=== PATIENT | female | born 1990 | race Caucasian/White ===

== ENCOUNTER 2016-08-18 10:30 | Emergency (ER) | payer MEDICAID ==
[2016-08-18 11:27] LABS: BASO % 0.8 % (0.0-2.0); EOS # 0.4 K/uL (0.0-0.7); HEMATOCRIT 38.1 % (34.0-47.0); LYMPH # 2.3 K/uL (1.0-4.3); LYMPH % 40.6 % (20.0-40.0); MEAN CELL VOLUME 80.3 fL (81.0-99.0); MEAN CORPUSCULAR HEMOGLOBIN 26.7 pg (27.0-31.0); MEAN CORPUSCULAR HGB CONC 33.3 g/dL (33.0-37.0); MONO # 0.4 K/uL (0.0-0.8); MONO % 7.6 % (0.0-10.0); RED CELL DISTRIBUTION WIDTH 13.2 % (11.5-14.5); WHITE BLOOD COUNT 5.6 K/uL (4.8-10.8)
[2016-08-18 11:35] LABS: CHLORIDE 105 mmol/L (98-107); POTASSIUM 3.8 mmol/L (3.6-5.2); SODIUM 144 mmol/L (132-148)
[2016-08-18 11:37] LABS: ALB/GLOB RATIO 1.2 (1.0-2.1); ALKALINE PHOSPHATASE 41 U/L (38-126); AMYLASE 104 U/L (30-110); AST/SGOT 34 U/L (14-36); BILIRUBIN,TOTAL 0.3 mg/dL (0.2-1.3); BLOOD UREA NITROGEN 11 mg/dL (7-17); CARBON DIOXIDE 24 mmol/L (22-30); GFR AFRICAN-AMERICAN > 60; TOTAL PROTEIN 7.7 g/dL (6.3-8.3)
[2016-08-18 11:38] LABS: ALT/SGPT 41 U/L (9-52); GLUCOSE,RANDOM 80 mg/dL (65-105)
[2016-08-18 11:39] LABS: URINE BILIRUBIN NEGATIVE (NEGATIVE); URINE BLOOD 3+ (NEGATIVE); URINE COLOR Yellow (YELLOW); URINE GLUCOSE (UA) NORMAL (Normal); URINE KETONE NEGATIVE (NEGATIVE); URINE LEUKOCYTE ESTERASE NEG Leu/uL (Negative); URINE PROTEIN NEGATIVE (NEGATIVE); URINE UROBILINOGEN NORMAL mg/dL (0.2-1.0)
[2016-08-18 11:57] LABS: RBC URINE 3 /hpf (0-3); WBC URINE 2 /hpf (0-5)
--- NOTE | 2016-08-18 12:40 | C.PDOC ---
History Of Present Illness 26 year old female presents to the ED with complaints of nausea, vomiting, and pain after eating for the last week. Currently she has no pain. No fever. No n/ v. Patient notes bright red blood has been present with non-painful bowel movements for a year and has become more persistent. Has not been evalauted for this previously. Time Seen by Provider: 08/18/16 11:20 Chief Complaint (Nursing): GI Problem History Per: Patient History/Exam Limitations: no limitations Onset/Duration Of Symptoms: Persistent (blood in stool has been present for a year, with nausea, vomiting, and pain after eating appearing for the last week ) Current Symptoms Are (Timing): Still Present Quality Of Discomfort: "Pain" Associated Symptoms: Nausea. denies: Fever, Chills, Vomiting, Diarrhea Past Medical History Reviewed: Historical Data, Nursing Documentation, Vital Signs Vital Signs: Last Vital Signs Temp 98.4 F 08/18/16 14:06 Pulse 84 08/18/16 14:06 Resp 20 08/18/16 14:06 BP 98/65 L 08/18/16 14:06 Pulse Ox 100 08/18/16 14:07 - Medical History PMH: Asthma Family History: States: Unknown Family Hx - Social History Hx Alcohol Use: No Hx Substance Use: No - Immunization History Hx Influenza Vaccination: No Review Of Systems Constitutional: Negative for: Fever, Chills Gastrointestinal: Positive for: Nausea, Abdominal Pain. Negative for: Vomiting Genitourinary: Negative for: Incontinence, Hematuria Physical Exam - Physical Exam Appears: Non-toxic, No Acute Distress Skin: Warm, Dry Head: Atraumatic, Normacephalic Eye(s): bilateral: Normal Inspection, EOMI Nose: Normal Oral Mucosa: Moist Neck: Supple Chest: Symmetrical Cardiovascular: Rhythm Regular Respiratory: Normal Breath Sounds, No Rales, No Rhonchi, No Stridor, No Wheezing Gastrointestinal/Abdominal: Soft, No Tenderness, No Distention, No Guarding, No Rebound Rectal: Normal Exam, No Melena, No Hemorrhoids ((-) external hemorrhoids), No Tenderness Extremity: Normal ROM, No Tenderness Neurological/Psych: Oriented x3 ED Course And Treatment - Laboratory Results Result Diagrams: 08/18/16 11:21 08/18/16 11:21 O2 Sat by Pulse Oximetry: 100 Progress Note: Pt is currently asymptomatic. Not anemic. Abdomen is soft, nontender. Therefore will be discharged for outpt follow up with GI. Instructed strict follow up or return to ER if symtpoms persist or worsen. Case discussed with Dr Dc, agreed upon plan an ddischarge. Disposition - Disposition Referrals: Bk Ramirez MD [Staff Provider] - Disposition: HOME/ ROUTINE Disposition Time: 14:02 Condition: STABLE Additional Instructions: Follow up with your primary medical doctor or clinic in 2-5 days for further evaluation. Take medications as prescribed. Return to the emergency department at any time if symptoms persist or worsen. Prescriptions: Magnesium Citrate 150 mg PO BID PRN #15 tablet PRN Reason: Constipation Instructions: Rectal Bleeding (ED) - Clinical Impression Clinical Impression: Rectal bleeding, Abdominal pain, Constipation - Scribe Statement The provider has reviewed the documentation as recorded by the Stephanie Claire All medical record entries made by the Stephanie were at my direction and personally dictated by me. I have reviewed the chart and agree that the record accurately reflects my personal performance of the history, physical exam, medical decision making, and the department course for this patient. I have also personally directed, reviewed, and agree with the discharge instructions and disposition.
[2016-08-18 14:06] VITALS: BP 98/65; PULSE 84; RESP 20; TEMP 98.4
[2016-08-18 14:07] VITALS: O2SAT 100
--- NOTE | 2016-08-18 14:45 | RAD ---
Abdomen four views History: Abdominal pain. Comparison: None available. Findings: Moderate fecal retention in the colon. Few nonspecific mildly dilated loops of small bowel seen within the mid lower abdomen. Lung landers are clear. Biapical pleural thickening with upper lobe granulomatous changes. Impression: Nonspecific bowel gas pattern with a few distended/mildly dilated loops of small bowel seen within the mid lower abdomen. Fecal retention in the colon.
== END 2016-08-18 14:35 | disposition home or self-care (01) ==
LOC: C.ER 10:30
DX: K59.00 Constipation, unspecified (principal); K62.5 Hemorrhage of anus and rectum
CPT/HCPCS: 74022; 80053; 81001; 82150; 83690; 84703; 85025; 99284; G0328